=== PATIENT | male | born 1975 | race Caucasian/White ===

== ENCOUNTER 2017-03-03 14:06 | Emergency (ER) | payer OTHER ==
[2017-03-03] MEDS ORDERED: cefTRIAXone IM 1 GM VIAL IM ONE (15:00)
[2017-03-03] MEDS ORDERED: IBUPROFEN 800 MG TABLET. PO ONE (15:15)
[2017-03-03] MEDS ORDERED: HYDR115S2 PO (15:34)
[2017-03-03] MEDS ORDERED: AZIT250T PO (15:34)
--- NOTE | 2017-03-03 15:34 | PHYS DOC ---
Past History Past Medical History: No Pertinent History Past Surgical History: No Surgical History Alcohol Use: Occasionally Drug Use: None Adult General Chief Complaint Chief Complaint: HEADACHE HPI HPI 41-year-old male patient complaining of left facial a sharp pain and fullness with radiation to left ears for the last 5 days with nasal congestion and headache. Patient states he had fever up to 101 intermittently and episodes of change of vision. Patient states he took [id number] medication without improvement of his condition. Patient denies focal neuro deficit, vomiting, neck pain. Patient was seen by his primary care nurse practitioner today who recommended to come to ER for more evaluation. Review of Systems Review of Systems Constitutional: Reports fever and chills[] Eyes: Denies change in visual acuity, redness, or eye pain [] HENT: Reports nasal congestion and sinus pressure Respiratory: Denies shortness of breath , reports cough[] Cardiovascular: No additional information not addressed in HPI [] GI: Denies abdominal pain, nausea, vomiting, bloody stools or diarrhea [] : Denies dysuria or hematuria [] Musculoskeletal: Denies back pain or joint pain [] Integument: Denies rash or skin lesions [] Neurologic: Denies focal weakness or sensory changes, reports headache [] Endocrine: Denies polyuria or polydipsia [] All other systems were reviewed and found to be within normal limits, except as documented in this note. Current Medications Current Medications Current Medications Medications (Trade) Dose Ordered Sig/Radha Start Time Stop Time Status Last Admin Dose Admin Ceftriaxone Sodium (Rocephin Im) 1 gm 1X ONCE 03/03/17 15:00 03/03/17 15:04 DC 03/03/17 15:14 1 GM Ibuprofen (Motrin) 800 mg 1X ONCE 03/03/17 15:15 03/03/17 15:16 DC 03/03/17 15:10 800 MG Allergies Allergies Allergies Coded Allergies Type Severity Reaction Last Updated Verified No Known Drug Allergies 03/03/17 No Physical Exam Physical Exam Constitutional: Well developed, well nourished, mild distress, non-toxic appearance, afebrile. [] HENT: Normocephalic, atraumatic, bilateral external ears normal, oropharynx moist, no oral exudates, left periorbital mild edema without erythema, tenderness of left frontal and maxillary sinus, postnasal drainage. Eyes: PERRLA, EOMI, conjunctiva normal, no discharge. [] Neck: Normal range of motion, no tenderness, supple, no stridor. [] Cardiovascular:Heart rate regular rhythm, no murmur [] Lungs & Thorax: Bilateral breath sounds clear to auscultation [] Abdomen: Bowel sounds normal, soft, no tenderness, no masses, no pulsatile masses. [] Skin: Warm, dry, no erythema, no rash. [] Back: No tenderness, no CVA tenderness. [] Extremities: No tenderness, no cyanosis, no clubbing, ROM intact, no edema. [] Neurologic: Alert and oriented X 3, normal motor function, normal sensory function, no focal deficits noted. [] Psychologic: Affect normal, judgement normal, mood normal. [] Current Patient Data Vital Signs Vital Signs Date Time Temp Pulse Resp B/P (MAP) Pulse Ox O2 Delivery O2 Flow Rate FiO2 03/03/17 14:06 98.2 81 18 100 Room Air EKG EKG [] Radiology/Procedures Radiology/Procedures [] Course & Med Decision Making Course & Med Decision Making Evaluation of patient in ER showed 41-year-old male patient with sinus pressure and headache and mild left facial edema for the last several days[ that did not get better with [id number] medication. Patient sent from his primary care physician office to ER. Patient did not have neurovascular deficit. Eye exam was unremarkable. Patient did not have meningeal sign. Patient had frontal and maxillary sinus tenderness in left site. Patient had dose of Rocephin in ER and plan to discharge him home with prescription of Zithromax and Tussionex.] Dragon Disclaimer Dragon Disclaimer This electronic medical record was generated, in whole or in part, using a voice recognition dictation system. Departure Departure: Impression: Primary Impression: Acute sinusitis Disposition: 01 HOME, SELF-CARE (At 1531) Condition: IMPROVED Referrals: RIGOBERTO RODAS (PCP) Patient Instructions: Sinusitis Additional Instructions: Take plenty of liquids Follow-up with your physician in 3-5 days Return to ER if not getting better Scripts Hydrocodone/Chlorphen P-Stirex (Tussionex Pennkinetic Susp) 115 Ml Dona.er.12h 5 ML PO BID, #120 ML Prov: JONAS SHAHID MD 03/03/17 Azithromycin (ZITHROMAX) 250 Mg Tablet 1 PKG PO UD, #6 TAB Prov: JONAS SHAHID MD 03/03/17 JONAS SHAHID MD Mar 03, 2017 15:34
[2017-03-03 15:40] VITALS: BP 127/83
== END 2017-03-03 15:40 | disposition home or self-care (01) ==
LOC: ER 14:06
DX: J01.90 Acute sinusitis, unspecified (principal)
CPT/HCPCS: 96372; 99283; J0696